=== PATIENT | female | born 1975 | race Caucasian/White ===

== ENCOUNTER 2017-10-12 19:50 | Emergency (ER) | payer MEDICAID, OTHER, SELFPAY ==
[~2017-10-12] VITALS: Ht 162.6 cm; Wt 81.0 kg
[2017-10-12] MEDS ORDERED: SODIUM CHLORIDE 0.9% 1,000ML IVBOLUS ONE ×2 (20:00→21:00)
[2017-10-12] MEDS ORDERED: ONDANSETRON 2MG/ML, 2ML IVPush ONE (20:00)
[2017-10-12 20:30] LABS: BASOPHILS % (AUTO) 0 % (0-1); EOSINOPHILS # (AUTO) 0.03 x10^3/uL (0-0.4); EOSINOPHILS % (AUTO) 1 % (1-7); LYMPHOCYTES # (AUTO) 0.63 x10^3/uL (1-3.4); LYMPHOCYTES % (AUTO) 13 % (22-44); MD NO; MEAN CORPUSCULAR HEMOGLOBIN 29.5 pg (27.0-34.8); MEAN CORPUSCULAR HGB CONC 34.4 g/dL (32.4-35.8); MEAN CORPUSCULAR VOLUME 85.7 fL (80-100); MEAN PLATELET VOLUME 8.1 fL (7.4-10.4); MONOCYTES # (AUTO) 0.42 x10^3/uL (0.2-0.8); MONOCYTES % (AUTO) 9 % (2-9); NEUTROPHILS # (AUTO) 3.79 x10^3/uL (1.8-6.8); NEUTROPHILS % (AUTO) 78 % (42-75); PLATELET COUNT 264 x10^3/uL (130-400); RED CELL DISTRIBUTION WIDTH 12.1 % (9.6-15.2)
[2017-10-12] MEDS ORDERED: ONDANSETRON 2MG/ML, 2ML ONE (20:32)
[2017-10-12 20:42] LABS: ALANINE AMINOTRANSFERASE 22 U/L (12-78); ALBUMIN 3.7 g/dL (3.4-5.0); ANION GAP 8 mmol/L (5-15); CALCIUM 8.6 mg/dL (8.5-10.1); CHLORIDE 108 mmol/L (98-107); CREATININE 0.81 mg/dL (0.55-1.02)
[2017-10-12 20:45] LABS: ALKALINE PHOSPHATASE 83 U/L (45-117); BILIRUBIN,TOTAL 1.4 mg/dL (0.2-1.0); CREATINE KINASE, TOTAL 200 U/L (26-192); TOTAL PROTEIN 7.9 g/dL (6.4-8.2)
[2017-10-12 21:44] VITALS: BP 125/68
[2017-10-12 22:03] LABS: HCG UR SG 1.006 (1.003-1.030); MICROSCOPIC NOT IND
[2017-10-12 22:15] LABS: CULTURE INDICATED? NO
== END 2017-10-12 23:01 | disposition home or self-care (01) ==
LOC: ED 21:27
DX: E86.0 Dehydration (principal)
CPT/HCPCS: 36415; 80053; 81003; 81025; 82550; 83690; 85025; 93005; 96374; 99285; J2405; J7030

== ENCOUNTER 2019-03-13 09:33 | Emergency (ER) | payer OTHER ==
[~2019-03-13] VITALS: Ht 160 cm; Wt 73.3 kg
[2019-03-13 11:42] VITALS: BP 127/78
== END 2019-03-13 11:44 | disposition home or self-care (01) ==
LOC: ED 11:23
DX: M79.661 Pain in right lower leg (principal)
CPT/HCPCS: 99284